=== PATIENT | female | born 1980 | race Native Hawaiian/Other Pacific Islander ===

== ENCOUNTER 2016-07-01 13:32 | Emergency (ER) | payer OTHER ==
[~2016-07-01] VITALS: Ht 152.4 cm; Wt 60.0 kg
[~2016-07-01 13:32] MED LIST: BENA25TA5 PO; CALC500T21 PO; COMMODE 3:1; CYCL1PAK PO; FOLI1 PO; HYDR-3580 PO; PERI8.6T PO; RANI150 PO; RIVA10 PO; THERM PO; THIA100T PO; WALKER ROLLING; WHEELCHAIR RENTAL RA; Z.0.WALKERPLAT; Z.0.WHEELELR
[2016-07-01 13:36] VITALS: BP 136/72; PULSE 52; RESP 20; TEMP 98; O2SAT 100
--- NOTE | 2016-07-01 13:49 | PD ---
Physical Exam Date Seen by Provider: Jul 01, 2016 Time Seen by Provider: 13:47 Narrative 35 year old female presents to the emergency department for evaluation of a right foot laceration that occurred this morning at 7am. She states a knife fell, hitting her right foot. Vital signs reviewed. Patient awaiting bed placement. Data Data Last Documented VS Vital Signs Date Time Temp Pulse Resp B/P Pulse Ox O2 Delivery O2 Flow Rate FiO2 07/01/16 13:36 98.0 52 20 136/72 100 Room Air [facility] Supervised Visit with SILVER: Elaina Sanchez Jul 01, 2016 13:49
--- NOTE | 2016-07-01 14:15 | PD ---
HPI . right foot laceration Chief Complaint: Laceration/Skin Injury Time Seen by Provider: 14:15 Travel History International Travel<30 days: No Contact w/Intl Traveler<30days: No Traveled to known affect area: No History of Present Illness HPI 35-year-old female here with complaints of right foot laceration. Patient was trying to put a knife away in her cabinet when somehow it slipped and sliced her foot open. She did not sustain any type of puncture wound. The knife somehow managed to just slide across and cut the surface of her skin. She is here with complaints of not being able to stop the bleeding. She tells me that she was going to try to use a clean dressing at home, however the area continued to bleed and she decided to come to the emergency department for further evaluation. She complains of pain to the area of the laceration. She has no other injuries. She denies any foot pain elsewhere. She is not up-to- date on tetanus. She is accompanied by her 3 daughters. PFS Past Medical History Arthritis: No Asthma: No Autoimmune Disease: No Anxiety: Yes Depression: Yes (situational/sees a counselor) Heart Rhythm Problems: No Cancer: No Cardiovascular Problems: No High Cholesterol: No Chemotherapy: No Chest Pain: No Congestive Heart Failure: No COPD: No Cerebrovascular Accident: No Diabetes: No Endocrine: No GERD: No Genitourinary: No Hiatal Hernia: No Immune Disorder: No Kidney Stones: No Musculoskeletal: No Neurologic: No Psychiatric: Yes (sees counselor) Reproductive: No Respiratory: No Migraines: No Radiation Therapy: No Renal Failure: No Seizures: No Sickle Cell Disease: No Sleep Apnea: No Thyroid Disease: No Ulcer: No ?: Not LMP: 07/01/16 Past Surgical History Abdominal Surgery: No AICD: No Arteriovenous Shunt: No Body Medical Devices: ORIF RIGHT FIBULA, RIGHT WRIST, LEFT FEMUR Cardiac Surgery: No Ear Surgery: No Endocrine Surgery: No Eye Surgery: No Genitourinary Surgery: No Gynecologic Surgery: Yes (tubal ligation 10/2009) Insulin Pump: No Joint Replacement: No Oral Surgery: No Pacemaker: No Thoracic Surgery: No Social History Tobacco Use: No Substance Use: No Allergies-Medications (Allergen,Severity, Reaction): Coded Allergies: Darvocet-N 100 (Verified Allergy, Intermediate, rash, n/v, 05/29/15) per patient Reported Meds & Prescriptions Reported Meds & Active Scripts Active No Active Prescriptions or Reported Medications Review of Systems General / Constitutional: No: Fever Eyes: No: Visual changes HENT: No: Headaches Cardiovascular: No: Chest Pain or Discomfort Respiratory: No: Shortness of Breath Gastrointestinal: No: Abdominal Pain Genitourinary: No: Dysuria Musculoskeletal: No: Pain Skin: Positive Other (right foot laceration: dorsum (midfoot)), No Rash Neurologic: No: Weakness Psychiatric: No: Depression Endocrine: No: Polydipsia Hematologic/Lymphatic: No: Easy Bruising Physical Exam Narrative GENERAL: AAO x 3, no acute distress, Well-nourished, well-developed patient. SKIN: Warm and dry. No visible rashes or bruising. right foot dorsum: Very superficial laceration that has sliced the epidermis. There is no visualization of tendon or vessel injury. There is no nerve injury. Laceration measures proximally 3 cm irregularly-shaped with 2 jagged edges and missing skin HEAD: Normocephalic and atraumatic. EYES: No scleral icterus. No injection or drainage. ENT: No nasal drainage noted. Mucous membranes pink. Airway patent. NECK: Supple, trachea midline. No JVD. CARDIOVASCULAR: Regular rate and rhythm without murmurs, gallops, or rubs. RESPIRATORY: Breath sounds equal bilaterally. No accessory muscle use. No rhonchi or rales. GASTROINTESTINAL: Visual inspection normal EXTREMITIES: No cyanosis or edema. All digits move normally on bilateral feet. NEURO: Lower extremity examination within normal limits. Sensation intact. Movement of all external reason pack. Strength is normal. BACK: Nontender without obvious deformity. No CVA tenderness. PSYCH: AAO x 3, normal affect. Data Data Last Documented VS Vital Signs Date Time Temp Pulse Resp B/P Pulse Ox O2 Delivery O2 Flow Rate FiO2 07/01/16 13:36 98.0 52 20 136/72 100 Room Air Orders Tetanus/Diphtheria Tox Adult (Tetanus/Di (07/01/16 14:30) Lidocaine 1% Inj (50 Ml) (Xylocaine 1% I (07/01/16 14:30) MDM Medical Decision Making Medical Screen Exam Complete: Yes Emergency Medical Condition: Yes Medical Record Reviewed: Yes Differential Diagnosis Laceration, less likely foot fracture, less likely cellulitis Narrative Course 35-year-old female here with complaints of right foot laceration. Patient was trying to put a knife away in her cabinet when somehow it slipped and sliced her foot open. She did not sustain any type of puncture wound. The knife somehow managed to just slide across and cut the surface of her skin. She is here with complaints of not being able to stop the bleeding. She tells me that she was going to try to use a clean dressing at home, however the area continued to bleed and she decided to come to the emergency department for further evaluation. She complains of pain to the area of the laceration. She has no other injuries. She denies any foot pain elsewhere. She is not up-to- date on tetanus. She is accompanied by her 3 daughters. Patient seen and examined. She does have a 3 segment laceration to the dorsum of her right foot. A combination of sutures and Steri-Strips were used to repair the area. Patient consented to procedure. She tolerated without incident. Hemostasis was achieved prior to discharge. We discussed general wound care principles and aftercare. I advised her if there is any signs of infection to return to the ED. She will return for removal in 7-10 days. Tetanus vaccination was administered. Patient verbalized understanding of instructions, questions were answered, and thanked me for their care. I advised them if their condition worsens, please return to the nearest emergency room for further care. Procedures Procedure Narrative LACERATION LOCATION: LENGTH: 3 cm irregular borders, no vessel, nerve or tendon damage NUMBER OF STITCHES/JAYDEN: 7 and steri strips for skin that was damaged REPAIR: The area of the laceration was prepped with Betadine and sterilely draped. The laceration was infiltrated with 1% lidocaine. The wound was copiously irrigated and explored without evidence of foreign body, tendon injury or neurovascular injury. The wound was closed using 4-0 Ethilon. This was a single layer repair. A sterile dressing was applied. The patient was advised to keep the dressing clean and dry. Patient tolerated the procedure well. Diagnosis Primary Impression: Laceration of foot Qualified Code: S91.311A - Laceration of foot, right, initial encounter Patient Instructions: Acute Wound Care (ED), General Instructions, Laceration ( ED) Additional Instructions: Keep area clean and dry. Use gauze as we discussed and change 1-2 times a day. Watch for signs of infection: fever, redness, swelling, warmth, pus or drainage , red streaks around the cut, and increased pain from the area. If you received a tetanus shot, you may experience tenderness at the injection site. This is normal. The 7 sutures will need to be removed in 7-10 days. Please return to the emergency department to have been removed. Scripts No Active Prescriptions or Reported Meds Disposition: 01 DISCHARGE HOME Condition: Stable Shira Hu Jul 01, 2016 14:15
[2016-07-01] MEDS ORDERED: TETANUS/DIPHTHERIA TOXOID ADULT 0.5 ML VIAL IM ONE (14:30)
[2016-07-01] MEDS ORDERED: LIDOCAINE HCL 1% 50 ML VIAL INFIL ONE (14:30)
== END 2016-07-01 16:15 | disposition home or self-care (01) ==
LOC: NEPK 13:32
DX: S91.311A Laceration without foreign body, right foot, initial encounter (principal); Z23 Encounter for immunization; W26.0XXA Contact with knife, initial encounter; Y93.G3 Activity, cooking and baking; Y92.000 Kitchen of unspecified non-institutional (private) residence as the place of occurrence of the external cause; Y99.8 Other external cause status
CPT/HCPCS: 12002; 90471; 90714